=== PATIENT | female | born 1955 | race Caucasian/White ===

== ENCOUNTER → 2018-04-14 | Outpatient (CLI) | payer MEDICARE, MEDICAID ==
[~2018-04-14] MED LIST: ASPIRIN ADULT L81 M1 PO; B COMPLEX1 CAP PO; CELEXA20 MG PO; NORVASC5 MG PO; PRAVACHOL40 MG PO; TYLENOL W/CODEI1 TA2 PO; XOPENEX HF0.045 MG/A IH
== END | disposition home or self-care (01) ==
LOC: CT 10:20
DX: K57.30 Diverticulosis of large intestine without perforation or abscess without bleeding (principal); I10 Essential (primary) hypertension

== ENCOUNTER → 2018-04-15 | Outpatient (CLI) | payer MEDICARE, MEDICAID ==
[~2018-04-15] MED LIST changes: +HYDR12.5C PO; +LEVAQUIN500 M2 PO; +LOSARTAN POTASS50 M1 PO; +OMEPRAZOLE D/R20 MG PO; +PRAVASTATIN SOD40 MG PO; +PREDNISONE10 MG PO; +RANITIDINE HYD300 MG PO; +SERTRALINE HYDR50 MG PO
== END | disposition home or self-care (01) ==
LOC: LAB 14:57
DX: R19.7 Diarrhea, unspecified (principal)

== ENCOUNTER → 2018-04-27 | Outpatient (CLI) | payer MEDICARE, MEDICAID | END | disposition home or self-care (01) | LOC: US 07:30 | DX: R10.11 Right upper quadrant pain (principal); R10.31 Right lower quadrant pain; R63.4 Abnormal weight loss ==

== ENCOUNTER 2018-09-24 00:59 | Inpatient (IN) | payer MEDICARE, MEDICAID ==
[~2018-09-24] VITALS: Ht 162.6 cm; Wt 94.9 kg
[2018-09-24] VITALS (7 sets, daily range): BP systolic 98–155; BP diastolic 50–87
--- NOTE | ~2018-09-24 | PR ---
[place], [place] PROGRESS NOTE NAME: TONY THOMAS UNIT #: [id number] ROOM: 504 DOCTOR: LEI BARTON MD,JUANI BIRTHDATE: [birth year] DOS: 09/25/2018 SUBJECTIVE: She has been noted with significant reduction in respiratory symptoms yesterday. Continue on nebulized ipratropium bromide, continue steroids. Denies any symptoms of chest pain, fever or chills. She has been considered for transfer to the telemetry floor. This morning, the patient resting comfortably, sitting on the bed. OBJECTIVE: VITAL SIGNS: Normal temperature, respiratory rate 18, heart rate 74. Pulse ox saturation on room air 92% saturation. HEENT: Examination shows head was atraumatic. Eyes nonicterus. NECK: Supple. CARDIOVASCULAR: S1, S2 audible. LUNGS: The patient was noted with decreased breath sounds in the lungs bilaterally. Wheezing was noted decreased. ABDOMEN: Soft, nontender, bowel sounds present. EXTREMITIES: The patient without any acute edema. IMPRESSION: Resolving acute exacerbation of chronic obstructive pulmonary disease, acute tracheobronchitis with current medical management, gradually. PLAN OF MANAGEMENT: Agreed for the patient transferred to the medical floor. The dose of Solu-Medrol will be decreased. Monitor respiratory rate of the patient in the next 24 hours prior to consideration for possible home discharge depending further improvement with symptom. The steroid dose will be decreased. JUANI ODOM MD CM:PNTRANS [id number] JUANI BARTON MD 10/03/18 1048 interface
--- NOTE | ~2018-09-24 | EKG ---
[place], [place] ELECTROCARDIOGRAM REPORT NAME: TONY THOMAS UNIT #: [id number] ROOM: 504 DOCTOR: HARSHAANY DRAFT REPORT BIRTHDATE: [birth year] [facility] Test Date: 2018-09-24 Test Time: 01:19:09 Pat Name: TONY THOMAS Department: Room: [facility] Gender: F Grouter Helper: [facility] : 1955 Requested By: HANANE DELGADO Order Number: [id number] Reading MD: Hermilo Hugo MD Measurements Intervals [place] Rate: 70 P: 72 [place]: 177 QRS: 56 QRSD: 94 T: 32 QT: 430 QTc: 464 Interpretive Statements Sinus rhythm Low voltage, precordial leads Electronically Signed On 09-27-2018 4:08:23 PDT by Hermilo Hugo MD CM:EKGRPT:ELECTROCARDIOGRAM REPORT [id number] HANANE DELGADO MD EPIPHANY DRAFT REPORT HANANE DELGADO MD
--- NOTE | ~2018-09-24 | EKG ---
[place], [place] ELECTROCARDIOGRAM REPORT NAME: TONY THOMAS UNIT #: [id number] ROOM: 504 DOCTOR: EPIPHANY DRAFT REPORT BIRTHDATE: [birth year] [facility] Test Date: 2018-09-24 Test Time: 07:41:40 Pat Name: TONY THOMAS Department: Room: [facility] Gender: F Time Lock Expert: : 1955 Requested By: HANANE DELGADO Order Number: [id number] Reading MD: Hermilo Hugo MD Measurements Intervals [place] Rate: 60 P: 53 [place]: 197 QRS: 65 QRSD: 100 T: 34 QT: 490 QTc: 490 Interpretive Statements Sinus rhythm Borderline T abnormalities, anterior leads Borderline prolonged QT interval Electronically Signed On 09-27-2018 4:08:43 PDT by Hermilo Hugo MD CM:EKGRPT:ELECTROCARDIOGRAM REPORT [id number] HANANE DELGADO MD EPIPHANY DRAFT REPORT HANANE DELGADO MD
--- NOTE | ~2018-09-24 | PR ---
[place], [place] PROGRESS NOTE NAME: TONY THOMAS UNIT #: [id number] ROOM: 504 DOCTOR: LEI BARTON MD,JUANI BIRTHDATE: [birth year] DOS: 09/26/2018 SUBJECTIVE: She has been showing continued improvement and resolution of the acute respiratory symptoms, transferred from the ICU to the surgical floor. Denies symptoms of chest pain and ambulating with improvement in shortness of breath, cough, wheezing. All of the symptoms reported. OBJECTIVE: VITAL SIGNS: For the patient which were recorded this morning, normal temperature, respiratory rate 18, heart rate 69, blood pressure 162/80. Pulse oxygen saturation recorded as 93% saturation on room air. HEENT: Examination shows head was atraumatic. Eyes nonicterus. NECK: Supple. CARDIOVASCULAR: S1, S2 is audible. LUNGS: Noted without any wheezing or crackles. ABDOMEN: Soft, nontender, obese. EXTREMITIES: No acute change. IMPRESSION: 1. Resolving acute exacerbation of chronic obstructive pulmonary disease/bronchial asthma combination is very likely. 2. History of nicotine dependence. 3. Chronic obesity. 4. History of allergy to the albuterol sulfate. PLAN OF TREATMENT: The patient could be discharged home on tapering dose of prednisone and other medical management. Continue other therapy, plan and management previously as an outpatient to be followed by the primary care attending. JUANI ODOM MD CM:PNTRANS [id number] JUANI BARTON MD 09/26/18 1521 interface
--- NOTE | ~2018-09-24 | EKG ---
[place], [place] ELECTROCARDIOGRAM REPORT NAME: TONY THOMAS UNIT #: [id number] ROOM: 504 DOCTOR: BAM DRAFT REPORT BIRTHDATE: [birth year] [facility] Test Date: 2018-09-24 Test Time: 03:39:06 Pat Name: TONY THOMAS Department: Room: [facility] Gender: F Financial Center Manager: SS RESP : 1955 Requested By: HANANE DELGADO Order Number: [id number] Reading MD: Hermilo Hugo MD Measurements Intervals [place] Rate: 60 P: 71 [place]: 195 QRS: 74 QRSD: 98 T: 44 QT: 483 QTc: 483 Interpretive Statements Sinus rhythm Anteroseptal infarct, age indeterminate Electronically Signed On 09-27-2018 4:08:29 PDT by Hermilo Hugo MD CM:EKGRPT:ELECTROCARDIOGRAM REPORT [id number] HANANE DELGADO MD EPIPHANY DRAFT REPORT HANANE DELGADO MD
--- NOTE | ~2018-09-24 | CON ---
[place], [place] REPORT OF CONSULTATION NAME: TONY THOMAS UNIT #: [id number] ROOM: 504 DOCTOR: LEI BARTON MDJUANI BIRTHDATE: [birth year] DOS: 09/24/2018 PULMONARY CONSULTATION, EVALUATION AND MANAGEMENT REASON FOR CONSULTATION: For assessment of shortness of breath. HISTORY OF PRESENT ILLNESS: This is a 63-year-old white female patient started having increased symptoms of shortness of breath gradually in the past 2 to 3 days. The symptoms worsened significantly yesterday requiring assessment in the Emergency Room early this morning. She was assessed in the Emergency Room and given one dose of Solu-Medrol, given bronchodilator, other treatment, admitted to the hospital for further medical management. The patient has been currently admitted to the hospital and noted to be awake and alert. She has been noted with symptoms of shortness breath, which was occurring with exertion and sometime at rest as well. The patient denies any symptoms of chest pain with the symptoms, complaining of significant tightness in the chest intermittently. She was also reporting a cough, which are noted nonproductive and only mild. The wheezing was reported as well at home and later on as well. The patient had been admitted to the Intensive Care Unit. The patient was started on the BiPAP. For further medical management for this patient BiPAP used a few hours in the Emergency Room, but not using currently at this time. REVIEW OF SYSTEMS: CONSTITUTIONAL: Fatigue and tiredness reported. Denies symptoms of fever or chills. EYES: Denies burning, redness, or tenderness. EAR, NOSE, THROAT SYMPTOMS: Denies sore throat, hoarseness, otalgia, postnasal drainage or epistaxis. CARDIOVASCULAR: No angina pain, edema, pain of the lower extremities. GASTROINTESTINAL: Denies dysphagia, nausea, vomiting, diarrhea, abdominal pain, hematemesis, melena, or hematochezia. SKIN: Denies abnormal lesions or rashes. CENTRAL NERVOUS SYSTEM: No dizziness, headache, diplopia, syncopal episodes. Remaining systems were reviewed with the patient, they were noted all negative. PAST MEDICAL HISTORY: 1. The patient was noted with history of sleep apnea disorder, nonadherence with the treatment. 2. Bilateral breast cancer several years ago. 3. History of uterine cancer. 4. Essential hypertension. 5. Chronic O2 dependence. 6. Moderate obesity. PAST SURGICAL HISTORY: 1. Laser cataract extraction with lens implantation. 2. . 3. Complete hysterectomy for this patient that was done in 2007 with diagnosis of uterine cancer was noted. The patient states she was given some hormonal [place], [place] REPORT OF CONSULTATION NAME: TONY THOMAS UNIT #: [id number] ROOM: [facility] DOCTOR: JUANI THOMAS MD BIRTHDATE: [birth year] treatment after that. 4. Bilateral lump resection of the breast, exact dates were not recorded, but probably done in 2003 and 2007 range. The patient stated she has been treated with hormonal therapy after that. SOCIAL HISTORY: The patient is currently . She lives at home. She has 2 children. Denies history of alcohol use, illicit drug use. She has been noted with history of tobacco use up to 3 packs of cigarettes per day at some time and currently reporting tobacco use as less than a pack of cigarettes per day. Denies history of alcohol use or illicit drugs. FAMILY HISTORY: Both parents had been . The patient's father with complication of heart disease. Mother of heart disease. The patient also noted with unknown cancer. HOME MEDICATIONS: Listed as losartan, omeprazole, pravastatin, ranitidine and sertraline. ALLERGIES: 1. ZITHROMAX. 2. ALBUTEROL SULFATE NEBULIZER TREATMENT, SHORTNESS OF BREATH. PHYSICAL EXAMINATION: GENERAL: This is a 63-year-old female patient who has been currently noted to be awake and alert without any acute distress this morning of assessment. Height recorded by the nursing staff on this admission with height of 5 feet 4 inches, weight of 209 pounds, BMI 35.9. VITAL SIGNS: For the patient normal temperature, respiratory rate range between 29 one time, later noted as 18. Heart rate 71-80. Blood pressure 142/50-132/66. Pulse oxygen saturation recorded on the BiPAP as 99% saturation, later on 4 liters nasal cannula 97% saturation recorded at rest. HEENT: Examination shows head was atraumatic. Eyes nonicterus. NECK: Supple. CARDIOVASCULAR: S1, S2 is audible. LUNGS: Noted diffuse expiratory wheezing noted in the lungs with decreased breath sounds. ABDOMEN: Soft, nontender. Bowel sounds are present. EXTREMITIES: Noted without any acute edema, clubbing or cyanosis. MUSCULOSKELETAL: Without any acute deformities. CENTRAL NERVOUS SYSTEM: No gross focal deficit. Cranial nerves 2 to 12 are intact. LABORATORY DATA: CBC that was done WBC count 7.3, hemoglobin and hematocrit normal, platelet count normal. Eosinophils were noted as 2.9%. CMP that was done on 09/24/2018, BUN normal, creatinine was 1.11. Sodium 134, chloride of 110. Remaining LFTs were normal. PT/PTT this morning was normal. CBC on 09/24/2018 noted as normal CBC later on. The PT/PTT repeated again this morning as admission to the intensive care normal. CMP on 09/24/2018, BUN 9, creatinine 1.06, glucose 122, potassium 2.9. The troponin so far 2 sets were obtained from the patient and noted normal range. Chest x-ray that was done, 1 view in the [place], [place] REPORT OF CONSULTATION NAME: TONY THOMAS UNIT #: [id number] ROOM: [facility] DOCTOR: BENJAMÍN THOMAS MDM BIRTHDATE: [birth year] Emergency Room was essentially noted clear of any acute infiltration. CTA of the chest was done in the Emergency on 09/24/2018 was reviewed and it shows there was no evidence of pulmonary embolism. Scattered ground glass opacity noted in the lungs. In addition to that, the patient was noted with a small subcentimeter pulmonary nodule, which is present 2 mm nodule in the left upper lobe and 4 mm nodule in the left lower lobe. Another 4 mm nodule in the left lower lobe as well. There were no significant lymphadenopathy seen. Arterial blood gas that was done, pH of 7.50, pCO2 of 30, pO2 92 on BiPAP, noted with respiratory alkalosis. IMPRESSION: The patient will be currently admitted to the hospital noted with: 1. Acute exacerbation of chronic obstructive pulmonary disease, possibly bronchial asthma, eosinophilia was also considered very likely. 2. Allergy to ALBUTEROL SULFATE also reported by the patient with symptoms of shortness of breath. 3. The patient with a subcentimeter 3 pulmonary nodules noted, one in the left upper and 2 in the left lower lobe as well less than 5 mm in size noted significant. 4. Known history of cancer of the breast remotely for this about 15 years or so and history of uterine cancer for about 11 years ago as well. Both treated with surgery and hormonal treatments. 5. Chronic nicotine dependence. 6. Moderate obesity. 7. Obstructive sleep apnea disorder, nonadherence with the treatment was also reported. 8. Respiratory alkalosis noted may be related to the current hypoventilation for exacerbation of bronchial asthma. 9. The patient with acute hypoxemic respiratory failure related to acute exacerbation of chronic obstructive pulmonary disease. PLAN OF TREATMENT: 1. The patient will be continued on bronchodilator with ipratropium bromide. I have personally asked the patient's administration for the assessment of allergy for the patient. As the patient was getting the medication about 4 minutes later, she was noted unresponsiveness about 5 seconds with normal hemodynamics and vital signs recorded. She was noted with symptoms of shortness of breath. This is very unusual, the patient has not been reported as allergy. The exact etiology of the patient unresponsive cannot be clearly determined. 2. The patient's Solu-Medrol dose will be increased to 40 mg q.8 hours, nicotine replacement patches the patient wanted to use to overcome the nicotine withdrawal as well. Other plan of treatment changes will be made based on progression of the illness. Abstain from tobacco use encouraged. Assessment and management discussed with the patient's family members. Another arterial blood gases will be ordered for the patient to use the BiPAP. After that, if necessary based on that would be recommended. Titrate oxygen supplementation, maintain pulse oxygen 92% or greater. 3. DVT prophylaxis will be continued. DuoNeb was discontinued after the personal observation, now allergies reported by the patient and she will be started on ipratropium bromide for this patient every 4 hours. Collect the sputum for Gram stain and culture. The patient is able to expectorate sputum. [place], [place] REPORT OF CONSULTATION NAME: TONY THOMAS UNIT #: [id number] ROOM: 504 DOCTOR: LEI BARTON MD,[facility] BIRTHDATE: [birth year] In the meantime, continue empirical antibiotics. Usual care, other therapy, plan of management. Additional treatment changes will be ordered based on the progression of the overall illness. Thank you for allowing me to participate in the care of this patient. JUANI ODOM MD CM:CONSTR:REPORT OF CONSULTATION 1349 10/03/18 1046 interface
[~2018-09-24 00:59] MED LIST changes: -HYDR12.5C PO; -LEVAQUIN500 M2 PO; -LOSARTAN POTASS50 M1 PO; -OMEPRAZOLE D/R20 MG PO; -PRAVASTATIN SOD40 MG PO; -PREDNISONE10 MG PO; -RANITIDINE HYD300 MG PO; -SERTRALINE HYDR50 MG PO
[2018-09-24 01:17] LABS: BASO % 0.6 % (0.0-1.0); EOS # 0.2 10*3/uL (0.0-0.4); EOS % 2.9 % (1.0-4.0); HEMATOCRIT 43.3 % (37.0-47.0); HEMOGLOBIN 14.4 g/dl (12.0-16.0); LYMPH # 2.5 10*3/uL (1.3-4.4); LYMPH % 34.6 % (27.0-41.0); MEAN CELL VOLUME 93.9 fl (81.0-99.0); MEAN CORPUSCULAR HGB 31.2 pg (27.0-31.0); MEAN CORPUSCULAR HGB CONC 33.3 g/dl (33.0-37.0); MEAN PLATELET VOLUME 9.6 fl (9.6-12.3); MONO # 0.5 10*3/uL (0.1-1.0); MONO % 7.4 % (3.0-9.0); NEUT # 3.9 10*3/uL (2.3-7.9); NEUT % 54.2 % (47.0-73.0); PLATELET COUNT AUTOMATED 185 10*3/uL (130-400); RED BLOOD COUNT 4.61 10*6/uL (4.10-5.10); RED CELL DISTRI WIDTH 13.3 % (0-14.5); WHITE BLOOD COUNT 7.3 10*3/uL (4.8-10.8)
[2018-09-24] MEDS ORDERED: SERTRALINE HYDR50 MG PO (01:19)
[2018-09-24] MEDS ORDERED: OMEPRAZOLE D/R20 MG PO (01:19)
[2018-09-24] MEDS ORDERED: LOSARTAN POTASS50 M1 PO (01:19)
[2018-09-24] MEDS ORDERED: RANITIDINE HYD300 MG PO (01:20)
[2018-09-24] MEDS ORDERED: PRAVASTATIN SOD40 MG PO (01:20)
[2018-09-24 01:33] LABS: ALBUMIN 3.8 gm/dl (3.1-4.5); ALKALINE PHOSPHATASE 93 U/L (45-117); BUN 8 mg/dl (7-24); CHLORIDE 110 mmol/L (98-107); CREATININE 1.11 mg/dL (0.55-1.02); POTASSIUM 3.4 mmol/L (3.5-5.1); SGOT/AST 15 IU/L (3-35); SGPT/ALT 18 U/L (12-78); SODIUM 145 mmol/L (136-145); TOTAL PROTEIN 7.9 gm/dL (6.4-8.2)
[2018-09-24 01:34] LABS: INTERNATIONAL NORM RATIO 0.9 (2.0-3.5)
[2018-09-24 01:35] LABS: TROPONIN I < 0.015 ng/ml (<0.045)
[2018-09-24 01:42] LABS: ABG BASE EXCESS 1.9 mmol/L (-2.0-2.0); ABG HCO3 23.9 mmol/l (22-26); ARTERIAL BLOOD GAS PCO2 30.5 mmHg (35-45); ARTERIAL BLOOD GAS PH 7.505 (7.35-7.45); ARTERIAL BLOOD GAS PO2 92.1 mmHg (80-90)
--- NOTE | 2018-09-24 01:43 | NUR ---
Pt placed on BiPap 12/6 and 30%. Alarms on and audible. SPO2 is 100%. Atrovent breathing tx given. ABG drawn and sent.
--- NOTE | 2018-09-24 04:35 | NUR ---
PT MORE ALERT. TRANSFERRED TO BEDSIDE COMMODE. GAIT STEADY. DAUGHTERS AT BEDSIDE. PT VERBALIZES THAT HER BREATHING IS BETTER.
--- NOTE | 2018-09-24 05:13 | NUR ---
A 63, admitted to ICCU, under the services of MARYJANE Headley DO with a diagnosis of acute respiratory failure and hypoxemia Chief complaint is shortness of breath and chest heaviness with sob symptoms beginning September 15. Patient arrived via stretcher from ER. Monitor applied. Initial assessment completed. Vital signs taken and recorded. MARYJANE HEADLEY DO notified of admission to the unit. Orders received. See assessment for past medical history, medications and allergies. Patient and/or family oriented to unit. [facility]U visitation policy reviewed. Clothing/patient valuable form completed. SCOTT DUARTE
--- NOTE | 2018-09-24 05:36 | NUR ---
04:50 pt tranferred to icu on 4 l nc. PT STABLE SPO2 100. RESPS REGUALR AND UNLABORED. PT REFUSED BIPAP UPON ADMISSION TO ICU. BIPAP ON S/B AT BEDSIDE.
--- NOTE | 2018-09-24 06:37 | NUR ---
RESTING QUIETLY. NO ACUTE DISTRESS. PULSE OX 98% ON NC4.
--- NOTE | 2018-09-24 06:40 | NUR ---
DR BUCIO WAS NOTIFIED THAT MED REC WAS COMPLETED AND VERIFIED BY PT AND MEDICATION LIST PROVIDED BY PT.
[2018-09-24 07:02] LABS: BASO % 0.5 % (0.0-1.0); EOS # 0.1 10*3/uL (0.0-0.4); EOS % 1.9 % (1.0-4.0); HEMATOCRIT 41.8 % (37.0-47.0); HEMOGLOBIN 13.7 g/dl (12.0-16.0); LYMPH # 1.2 10*3/uL (1.3-4.4); LYMPH % 21.6 % (27.0-41.0); MEAN CELL VOLUME 93.5 fl (81.0-99.0); MEAN CORPUSCULAR HGB 30.6 pg (27.0-31.0); MEAN CORPUSCULAR HGB CONC 32.8 g/dl (33.0-37.0); MEAN PLATELET VOLUME 9.9 fl (9.6-12.3); MONO # 0.2 10*3/uL (0.1-1.0); MONO % 3.7 % (3.0-9.0); NEUT # 4.1 10*3/uL (2.3-7.9); PLATELET COUNT AUTOMATED 171 10*3/uL (130-400); RED BLOOD COUNT 4.47 10*6/uL (4.10-5.10); WHITE BLOOD COUNT 5.7 10*3/uL (4.8-10.8)
[2018-09-24 07:19] LABS: ALBUMIN 3.7 gm/dl (3.1-4.5); ALKALINE PHOSPHATASE 84 U/L (45-117); BUN 9 mg/dl (7-24); CHLORIDE 107 mmol/L (98-107); CHOLESTEROL 140 mg/dL (<200); CREATININE 1.06 mg/dL (0.55-1.02); HDL CHOLESTEROL 43 mg/dl (40-60); LDL CHOLESTEROL 70 mg/dL (9-159); PHOSPHOROUS 2.6 mg/dL (2.5-4.9); POTASSIUM 2.9 mmol/L (3.5-5.1); SGOT/AST 12 IU/L (3-35); SGPT/ALT 17 U/L (12-78); SODIUM 142 mmol/L (136-145); TOTAL PROTEIN 7.6 gm/dL (6.4-8.2); TRIGLYCERIDES 133 mg/dl (<150); VLDL CHOLESTEROL 27 mg/dL (6-40)
--- NOTE | 2018-09-24 09:04 | NUR ---
MEDICATED WITH NORCO FOR COMPLAINTS OF PAIN IN BACK AND KNEES. RATES PAIN A 7 ON A PAIN SCALE OF 1-10
--- NOTE | 2018-09-24 09:04 | NUR ---
MEDICATED WITH NORCO FOR COMPLAINTS OF PAIN IN BACK AND BILATERAL KNEES. RATES PAIN A 7 ON A PAIN SCALE OF 1-10.
--- NOTE | 2018-09-24 10:40 | NUR ---
DR ODOM HERE TO SEE PATIENT ON CONSULT
[2018-09-24 11:05] LABS: ABG BASE EXCESS -0.5 mmol/L (-2.0-2.0); ABG HCO3 23.4 mmol/l (22-26); ABG O2 SATURATION 96.7 % (95-97); ARTERIAL BLOOD GAS PCO2 37.4 mmHg (35-45); ARTERIAL BLOOD GAS PH 7.41 (7.35-7.45); ARTERIAL BLOOD GAS PO2 75.6 mmHg (80-90)
--- NOTE | 2018-09-24 18:45 | NUR ---
NURSING PUBLICITY PERSON NOTIFIED OF ORDERS TO TRANSFER TO 4E
--- NOTE | 2018-09-24 20:18 | NUR ---
SPUTUM CONTAINER PROVIDED TO PATIENT AT THIS TIME, EDUCATED PATIENT ON USE AND RATIONALE. PATIENT STATES SHE "WILL TRY TO COUGH UP SOMETHING" RN WILL CONTINUE TO MONITOR
[2018-09-25] VITALS: BP 124/58
--- NOTE | 2018-09-25 04:45 | NUR ---
WHEN ASKED, PATIENT IS REQUESTING TO HAVE A BATH "LATER WHEN SHE GETS WOKE UP MORE" DENIES ANY OTHER NEEDS AT THIS TIME. RN WILL CONTINUE TO MONITOR
[2018-09-25 05:59] LABS: BASO % 0.1 % (0.0-1.0); BUN 10 mg/dl (7-24); CHLORIDE 106 mmol/L (98-107); CREATININE 1.11 mg/dL (0.55-1.02); HEMATOCRIT 42.5 % (37.0-47.0); HEMOGLOBIN 13.8 g/dl (12.0-16.0); LYMPH # 0.8 10*3/uL (1.3-4.4); LYMPH % 8.2 % (27.0-41.0); MEAN CELL VOLUME 93.8 fl (81.0-99.0); MEAN CORPUSCULAR HGB 30.5 pg (27.0-31.0); MEAN CORPUSCULAR HGB CONC 32.5 g/dl (33.0-37.0); MEAN PLATELET VOLUME 10.1 fl (9.6-12.3); MONO # 0.2 10*3/uL (0.1-1.0); MONO % 1.9 % (3.0-9.0); NEUT % 89.4 % (47.0-73.0); PLATELET COUNT AUTOMATED 161 10*3/uL (130-400); RED BLOOD COUNT 4.53 10*6/uL (4.10-5.10); RED CELL DISTRI WIDTH 13.1 % (0-14.5); SODIUM 142 mmol/L (136-145); WHITE BLOOD COUNT 10.1 10*3/uL (4.8-10.8)
--- NOTE | 2018-09-25 06:24 | NUR ---
RESTING WITH EYES CLOSED, APPEARS TO BE SLEEPING. NO SIGNS OR SYMPTOMS OF DISTRESS SEEN. RESPIRATIONS ARE QUIET AND UNLABORED ON 3 LITERS NASAL CANNULA. CALL LIGHT IS WITHIN REACH. RN WILL CONTINUE TO MONITOR.
--- NOTE | 2018-09-25 06:58 | NUR ---
Shift chart check completed.24 HR chart check completed.
--- NOTE | 2018-09-25 07:50 | NUR ---
ON ASSESSMENT PATIENT IS ALERT, ORIENTED IN NO RESPIRATORY DISTRESS. MONITOR REMOVED SHE IS NON-MONITORED STATUS. DIMINISHED BREATH SOUNDS. SAYS "I FEEL GOOD ENOUGH TO GO HOME". SEE ALL APPROPRIATE INTERVENTIONS.
[2018-09-25 07:51] VITALS: BP 130/64
--- NOTE | 2018-09-25 10:45 | NUR ---
PT TO 504 VIA W/C WITH ALL OF HER BELONGINGS. REPORT TO GUEVARA Segundo
--- NOTE | 2018-09-25 11:30 | NUR ---
PT RESTING IN BED./ NO DISTRESS NOTED. NO VOICED C./O. WILL MONITOR
[2018-09-25 12:00] VITALS: BP 124/52
[2018-09-25 16:00] VITALS: BP 117/44
--- NOTE | 2018-09-25 19:51 | NUR ---
PT AWAKE SITTING UP IN BED, DAUGHTER AT BEDSIDE. PT DENIES ANY NEEDS AT THIS TIME. WILL MONITOR. CALL LIGHT IN REACH.
[2018-09-25 20:00] VITALS: BP 157/66
--- NOTE | 2018-09-25 22:19 | NUR ---
PO NORCO ADMINISTERED PER PRN ORDER FOR C/O PAIN IN BACK & R KNEE RATED 8/10. WILL MONITOR EFFECTIVENESS. CALL LIGHT LEFT IN REACH.
[2018-09-26] VITALS: BP 155/71
--- NOTE | 2018-09-26 01:42 | NUR ---
PT ASLEEP IN BED. RESPIRATIONS EASY, NO S/S OF DISTRESS NOTED. WILL MONITOR. CALL LIGHT IN REACH.
[2018-09-26 06:33] LABS: BASO % 0.1 % (0.0-1.0); HEMATOCRIT 43.9 % (37.0-47.0); HEMOGLOBIN 14.2 g/dl (12.0-16.0); LYMPH # 1.2 10*3/uL (1.3-4.4); LYMPH % 10.9 % (27.0-41.0); MEAN CELL VOLUME 95.6 fl (81.0-99.0); MEAN CORPUSCULAR HGB 30.9 pg (27.0-31.0); MEAN CORPUSCULAR HGB CONC 32.3 g/dl (33.0-37.0); MEAN PLATELET VOLUME 10.5 fl (9.6-12.3); MONO # 0.3 10*3/uL (0.1-1.0); MONO % 2.3 % (3.0-9.0); NEUT # 9.4 10*3/uL (2.3-7.9); PLATELET COUNT AUTOMATED 188 10*3/uL (130-400); RED BLOOD COUNT 4.59 10*6/uL (4.10-5.10); RED CELL DISTRI WIDTH 13.2 % (0-14.5); WHITE BLOOD COUNT 10.9 10*3/uL (4.8-10.8)
[2018-09-26 07:01] LABS: BUN 17 mg/dl (7-24); CHLORIDE 105 mmol/L (98-107); CREATININE 1.01 mg/dL (0.55-1.02); POTASSIUM 4.4 mmol/L (3.5-5.1); SODIUM 141 mmol/L (136-145)
--- NOTE | 2018-09-26 07:56 | NUR ---
PT RESTING IN BED. NO DISTRESS NOTED. WILL MONITOR
[2018-09-26 08:00] VITALS: BP 162/80
[2018-09-26] MEDS ORDERED: HYDR12.5C PO (09:59)
[2018-09-26] MEDS ORDERED: PREDNISONE10 MG PO (10:00)
[2018-09-26] MEDS ORDERED: LEVAQUIN500 M2 PO (10:00)
--- NOTE | 2018-09-26 12:36 | NUR ---
Discharge instructions reviewed with patient/family. Patient receptive and verbalizes understanding. Follow-up care arranged. Written instructions given to patient/family. GUEVARA STOKES
--- NOTE | 2018-09-26 14:11 | NUR ---
Automation And Controls Manager in to talk to patient. Patient states lives at HOME with . There are NO steps in the home. Physician: SHARYN Pharmacy: [facility] Home health services: NONE Patient's level of ADLs: INDEPENDENT Patient has working utilities: YES DME: NONE Follow-up physician's appointment after d/c: WILL BE MADE BY HOSPITALIST NURSE DIRECTOR ON DISCHARGE Does patient want to access PORTAL?: NO Discharge plan PT LIVES AT HOME WITH HER AND IS INDEPENDENT IN CARE. DENIES NEEDS ON DISCHARGE. PT STATES SHE WILL RETURN HOME ON DISCHARGE. STATES SHE WILL HAVE A RIDE. WILL CONTINUE TO FOLLOW.. DREW GANN
== END 2018-09-26 12:36 | disposition home or self-care (01) | DRG 189 ==
LOC: ED 00:59 → 5E 04:14 → EDHOLD 04:14 → ICCU 04:37 → 5E 09-25 10:58
PROVIDERS: Emergency Medicine Emergency Medical Services; Family Medicine; Internal Medicine; Internal Medicine Critical Care Medicine; Student in an Organized Health Care Education/Training Program; ADMIT Internal Medicine
PROC: 5A09357 Assistance with Respiratory Ventilation, Less than 24 Consecutive Hours, Continuous Positive Airway Pressure (ICD-10-PCS; principal; 2018-09-24)
DX: J96.01 Acute respiratory failure with hypoxia (principal); N17.0 Acute kidney failure with tubular necrosis; E87.3 Alkalosis; J44.1 Chronic obstructive pulmonary disease with (acute) exacerbation; J44.0 Chronic obstructive pulmonary disease with (acute) lower respiratory infection; R00.1 Bradycardia, unspecified; R91.8 Other nonspecific abnormal finding of lung field; G47.33 Obstructive sleep apnea (adult) (pediatric); E87.6 Hypokalemia; E87.8 Other disorders of electrolyte and fluid balance, not elsewhere classified; E66.9 Obesity, unspecified; I34.1 Nonrheumatic mitral (valve) prolapse; J20.9 Acute bronchitis, unspecified; R73.9 Hyperglycemia, unspecified; E83.41 Hypermagnesemia; Z96.1 Presence of intraocular lens; I10 Essential (primary) hypertension; F17.210 Nicotine dependence, cigarettes, uncomplicated; Z71.6 Tobacco abuse counseling; Z88.8 Allergy status to other drugs, medicaments and biological substances; Z85.3 Personal history of malignant neoplasm of breast; Z85.42 Personal history of malignant neoplasm of other parts of uterus; Z98.42 Cataract extraction status, left eye; Z98.41 Cataract extraction status, right eye; Z98.891 History of uterine scar from previous surgery; Z82.49 Family history of ischemic heart disease and other diseases of the circulatory system; Z80.8 Family history of malignant neoplasm of other organs or systems; Z88.1 Allergy status to other antibiotic agents; Z79.899 Other long term (current) drug therapy; Z90.710 Acquired absence of both cervix and uterus; Z68.35 Body mass index [BMI] 35.0-35.9, adult